=== PATIENT | female | born 2000 | race Two or more races ===

== ENCOUNTER 2023-12-11 09:24 | Observation (INO) | payer MEDICAID ==
[2023-12-11] MEDS ORDERED: PREN-96 PO (11:25)
== END 2023-12-11 11:34 | disposition home or self-care (01) ==
LOC: UNDOADMOB 09:24 → LDRP 09:24
PROVIDERS: ADMIT Obstetrics & Gynecology; ATTEND Obstetrics & Gynecology
DX: O26.893 Other specified pregnancy related conditions, third trimester (principal); H53.8 Other visual disturbances; Z3A.38 38 weeks gestation of pregnancy
CPT/HCPCS: 59025; 76818; 81002; 94760; G0378

== ENCOUNTER 2023-12-18 10:08 | Observation (INO) | payer MEDICAID ==
[~2023-12-18 10:08] MED LIST: PREN-96 PO
== END 2023-12-18 12:46 | disposition home or self-care (01) ==
LOC: UNDOADMOB 10:08 → LDRP 10:08
PROVIDERS: ADMIT Obstetrics & Gynecology; ATTEND Obstetrics & Gynecology
DX: Z36.89 Encounter for other specified antenatal screening (principal); Z3A.39 39 weeks gestation of pregnancy
CPT/HCPCS: 59025; 76818; 81002; G0378

== ENCOUNTER 2023-12-22 09:10 | Observation (INO) | payer MEDICAID | END 2023-12-22 11:33 | disposition home or self-care (01) | LOC: LDRP 09:10 → UNDOADMOB 09:10 → LDRP 09:20 | PROVIDERS: ADMIT Obstetrics & Gynecology; ATTEND Obstetrics & Gynecology | DX: O48.0 Post-term pregnancy (principal); O36.63X0 Maternal care for excessive fetal growth, third trimester, not applicable or unspecified; O62.9 Abnormality of forces of labor, unspecified; Z3A.40 40 weeks gestation of pregnancy | CPT/HCPCS: 59025; 76818; 81002; 94760; G0378 ==

== ENCOUNTER 2023-12-24 10:55 | Observation (INO) | payer MEDICAID ==
[2023-12-24] MEDS ORDERED: TERBUTALINE SULFATE 1 MG/ML 1ML VIAL SC SCH (11:45)
== END 2023-12-24 12:55 | disposition home or self-care (01) ==
LOC: LDRP 10:55 → UNDOADMOB 10:55 → LDRP 11:38
PROVIDERS: ADMIT Obstetrics & Gynecology; ATTEND Obstetrics & Gynecology
DX: O36.63X0 Maternal care for excessive fetal growth, third trimester, not applicable or unspecified (principal); O48.0 Post-term pregnancy; Z3A.40 40 weeks gestation of pregnancy
CPT/HCPCS: 59025; 76818; 81002; 94760; G0378

== ENCOUNTER 2023-12-26 08:15 | Inpatient (IN) | payer MEDICAID ==
[~2023-12-26] VITALS: Ht 160 cm; Wt 95.7 kg
[2023-12-26] MEDS ORDERED: LIDOCAINE 2%HCL (LOCAL ANESTH.) INJ 20ML MDV IJ PRN (08:45)
[2023-12-26] MEDS ORDERED: miSOPROStol 100 mcg TAB PR PRN (08:45)
[2023-12-26] MEDS ORDERED: BUTORPHANOL TARTRATE 2 MG/1 ML VIAL IV PRN ×2 (08:45)
[2023-12-26] MEDS ORDERED: miSOPROStol 100 mcg TAB SL PRN (08:45)
[2023-12-26 09:00] VITALS: RESP 16; TEMP 97.7; O2SAT 98
[2023-12-26 09:23] LABS: Basophils # (auto) 0.1 10 ^3/uL (0-0.2); Basophils % (auto) 0.6 % (0.0-2.0); Eosinophils # (auto) 0.1 10 ^3/uL (0-0.8); Hematocrit 38.3 % (36.0-46.0); Hemoglobin 12.7 g/dL (12.2-16.2); Lymphocytes # (auto) 1.4 10 ^3/uL (0.4-5.4); Lymphocytes % (auto) 16.4 % (10.0-50.0); Mean Corpuscular Hemoglobin 28.6 pg (28.0-32.0); Mean Corpuscular Hgb Conc. 33.1 g/dL (32.0-36.0); Mean Corpuscular Volume 86.4 fL (80.0-100.0); Monocytes # (auto) 0.6 10 ^3/uL (0-1.3); Monocytes % (auto) 7.6 % (0.0-12.0); Neutrophils # (auto) 6.2 10 ^3/uL (1.6-8.6); Neutrophils % (auto) 74.4 % (37.0-80.0); Nucleated Red Blood Cells % 0.1 %; Red Blood Cells 4.43 10^6/uL (4.0-5.20); Red Cell Distribution Width 13.9 % (11.8-14.3); White Blood Cell 8.4 10^3/uL (4.4-10.8)
[2023-12-26 09:36] LABS: INR 0.9 (0.9-1.15); Partial Thromboplastin Time 26.9 SEC (24.5-34.5); Prothrombin Time 9.5 sec (9.3-11.8)
[2023-12-26 09:45] LABS: Alanine Aminotransferase 18 U/L (7-40); Albumin 4.1 g/dL (3.2-4.8); Alkaline Phosphatase 143 U/L (46-116); Anion Gap 7 (5-15); Aspartate Aminotransferase 21 U/L (13-40); BUN/Creatinine Ratio 8.6 (10.0-20.0); Blood Urea Nitrogen 5 mg/dL (9-23); Calcium 9.2 mg/dL (8.5-10.1); Carbon Dioxide 23 mmol/L (20-30); Chloride 107 mmol/L (98-107); Glucose 86 mg/dL (74-106); Potassium 3.9 mmol/L (3.5-5.1); Sodium 137 mmol/L (136-145)
[2023-12-26 09:46] LABS: Bilirubin, Total 0.4 mg/dL (0.2-1.0); Total Protein 6.5 g/dL (5.7-8.2)
[2023-12-26] MEDS: LACTATED RINGER'S 1,000 ML IV SCH (10:04)
[2023-12-26] MEDS: miSOPROStol 50 MCG per PRE-CUT 1/2 TAB PO PRN (10:37)
[2023-12-26] MEDS ORDERED: ACCU-CHEK COMFORT CURVE STRIP VI SCH (12:00)
[2023-12-26 12:12] LABS: Urine Bacteria FEW /hpf (None Seen); Urine Blood Negative /uL (Negative); Urine Clarity Clear (Clear); Urine Color Yellow (Yellow); Urine Mucus FEW (None Seen); Urine Protein, UAD TRACE (Negative); Urine Specific Gravity 1.022 (1.001-1.035); Urine Urobilinogen Normal (Negative); Urine WBC 6 /hpf (0 - 5)
[2023-12-26 12:23] LABS: Amphetamine Screen, Urine Neg (NEGATIVE); Benzodiazephine Screen, Urine Neg (NEGATIVE)
[2023-12-26 12:24] LABS: Barbiturate Scree,Urine Neg (NEGATIVE); Cannabinoid Screen, Urine Neg (NEGATIVE); Cocaine Screen, Urine Neg (NEGATIVE); Opiate Scree,Urine Neg (NEGATIVE); Phencyclidine Screen, Urine Neg (NEGATIVE)
[2023-12-26] MEDS: CARBOPROST TROMETHAMINE 250 MCG/1ML VIAL IM ONE (19:00)
[2023-12-27] MEDS: DERMOPLAST 60ML BOTTLE TOP PRN (00:20)
[2023-12-27] MEDS: PHISODERM TOP SOLN 240ML BTL TOP PRN (00:20)
[2023-12-27] MEDS: WITCH HAZEL-GLYCERIN PAD TOP PRN (00:20)
[2023-12-27] MEDS ORDERED: TERBUTALINE SULFATE 1 MG/ML 1ML VIAL SC PRN (05:30)
[2023-12-27] MEDS: LACT. RINGERS/OXYTOCIN 20UNITS 1,000 ML IV SCH (06:56)
[2023-12-27] MEDS ORDERED: NALOXONE HCL 0.4 MG/ML VIAL IV ONE (09:15)
[2023-12-27] MEDS ORDERED: LACTATED RINGER'S 1,000 ML IV ONE (09:15)
[2023-12-27] MEDS ORDERED: ROPIVACAINE 0.5% (5MG/ML) 20ML AMPULE IJ ONE (09:15)
[2023-12-27] MEDS ORDERED: ePHEDrine SULFATE 50 MG/ML AMP IV ONE (09:15)
[2023-12-27] MEDS: ROPIVACAINE HCL 200 ML ONE (13:56)
[2023-12-27] MEDS ORDERED: ONDANSETRON ODT 4 MG TAB PO PRN (16:30)
[2023-12-27] MEDS: IBUPROFEN 800 MG TAB PO SCH (17:24)
[2023-12-27] MEDS: LACT. RINGERS/OXYTOCIN 20UNITS 500 ML IV ONE ×2 (17:30)
[2023-12-27 19:00] VITALS: BP 121/77; PULSE 102; RESP 22; TEMP 98.8; O2SAT 98
[2023-12-27] MEDS: METHYLERGONOVINE MALEATE 0.2 MG/ML AMP IM ONE (19:00)
[2023-12-27] MEDS: ACETAMINOPHEN 325 MG TAB PO PRN (20:37)
[2023-12-27] MEDS: DOCUSATE SOD 100 MG CAP PO SCH (22:06)
[2023-12-27 23:00] VITALS: BP 89/54; PULSE 81; RESP 14; TEMP 98; O2SAT 97
[2023-12-27] MEDS: IBUPROFEN 800 MG TAB PO PRN (23:20)
[2023-12-28 03:00] VITALS: BP 97/57; PULSE 84; RESP 16; TEMP 97.7; O2SAT 97
[2023-12-28 07:30] VITALS: BP 101/64; PULSE 88; RESP 17; TEMP 97.7; O2SAT 88
[2023-12-28 11:30] VITALS: BP 101/65; PULSE 93; RESP 16; TEMP 97.9; O2SAT 100
[2023-12-28 15:00] VITALS: BP 109/64; PULSE 80; RESP 16; TEMP 98.1; O2SAT 97
[2023-12-29 02:06] LABS: Rubella Antibodies, IgG <0.90 index (Immune >0.99)
[2023-12-29 04:06] LABS: RPR Non Reactive (Non Reactive)
[2023-12-29 19:07] LABS: Treponema pallidum Ab (FTA-Ab) Non Reactive (Non Reactive)
== END 2023-12-28 13:15 | disposition home or self-care (01) | DRG 560 ==
LOC: LDRP 08:15 → UNDOADMIN 08:15 → LDRP 08:51
PROVIDERS: ADMIT Obstetrics & Gynecology; ATTEND Obstetrics & Gynecology
PROC: 10D07Z6 Extraction of Products of Conception, Vacuum, Via Natural or Artificial Opening (ICD-10-PCS; principal; 2023-12-27)
PROC: 0UQGXZZ Repair Vagina, External Approach (ICD-10-PCS; 2023-12-27)
PROC: 0KQM0ZZ Repair Perineum Muscle, Open Approach (ICD-10-PCS; 2023-12-27)
PROC: 3E0S3BZ Introduction of Anesthetic Agent into Epidural Space, Percutaneous Approach (ICD-10-PCS; 2023-12-27)
PROC: 00HU33Z Insertion of Infusion Device into Spinal Canal, Percutaneous Approach (ICD-10-PCS; 2023-12-27)
DX: O48.0 Post-term pregnancy (principal); Z37.0 Single live birth; O36.63X0 Maternal care for excessive fetal growth, third trimester, not applicable or unspecified; O70.1 Second degree perineal laceration during delivery; Z3A.40 40 weeks gestation of pregnancy
CPT/HCPCS: 36415; 59025; 59409; 62282; 76805; 80053; 80307; 81001; 85025; 85610; 85730; 86592; 86762; 86850; 86900; 86901; 94760; 94762; 96360; 96361; 96366; G0378; J2590